=== PATIENT | male | born 1970 | race Caucasian/White ===

== ENCOUNTER 2018-10-15 15:15 | Inpatient (IN) ==
[2018-10-15] MEDS ORDERED: ONDANSETRON 4 MG/2 ML VIAL IV STA (16:12)
[2018-10-15] MEDS ORDERED: SODIUM CHLORIDE 0.9% 500 ML IV STA (16:12)
[2018-10-15] MEDS ORDERED: PANTOPRAZOLE 40 MG VIAL IV STA (16:12)
[2018-10-15] MEDS ORDERED: HYDROmorphone 2 MG/1 ML VIAL IV STA ×2 (16:12→21:47)
[2018-10-15 18:09] LABS: Basophils % 0.1 % (0.0-0.8); Hematocrit 36.5 VOL% (42.0-52.0); Hemoglobin 12.1 GM/DL (14.0-18.0); Immature Granulocytes % 0.7 %; Lymphocytes # 0.2 10*3/uL (1.4-4.0); Lymphocytes % 1.2 % (21.2-54.2); Mean Corpuscular HGB Conc 33.2 GM/DL (32-36); Mean Corpuscular Hemoglobin 35 PG (27-34); Mean Corpuscular Volume 105.5 FL (87-102); Mean Platelet Volume 11.7 FL (9.6-12.0); Monocytes # 1.5 10*3/uL (0.11-0.8); Monocytes % 10.1 % (1.7-12.7); Neutrophils % 87.9 % (38.7-73.9); Platelet Count 77 T/CUMM (130-400); Red Blood Count 3.46 MC/CUMM (3.8-5.5); Red Cell Distribution Width 12.5 % (9.3-17.3); White Blood Count 14.8 T/CUMM (4-12)
[2018-10-15 18:27] LABS: Alanine Aminotransferase 23 U/L (16-61); Albumin 2.5 G/DL (3.4-5.0); Alkaline Phosphatase 231 U/L (45-117); Amylase 5 U/L (25-115); Aspartate Amino Transferase 45 U/L (0-37); Blood Urea Nitrogen 9 MG/DL (7-18); Glucose 138 MG/DL (74-106); Osmolality,Calculated 279.4 MOS/KG (273-304); Potassium 3.7 MMOL/L (3.5-5.1); Sodium 140 MMOL/L (136-145); Total Protein 5.5 G/DL (6.4-8.3)
[2018-10-15] MEDS ORDERED: MAGNESIUM SULF RIDER 2 GM in PREMIX 1 EACH IV STA (19:07)
[2018-10-15] MEDS ORDERED: SODIUM CHLORIDE 0.9% 1,950 ML IV ONE (19:10)
[2018-10-15] MEDS ORDERED: SODIUM CHLORIDE 0.9% 1,000 ML IV SCH (19:30)
[2018-10-15] MEDS ORDERED: PIPERACILLIN/TAZOBACTAM 3,375 MG in SODIUM CHLORIDE 0.9% 100 ML IV SCH (19:30)
[2018-10-15] MEDS ORDERED: ALBUTEROL 2.5 MG/3 ML NEB RESP TX PRN (19:45)
[2018-10-15] MEDS ORDERED: ALBUTEROL/IPRATROPIUM 3 ML NEB RESP TX PRN (19:45)
[2018-10-15 19:51] LABS: Apearance,Urine Slightly Hazy (Clear); Bilirubin,Urine Negative (Negative); Blood, Urine Negative (Negative); Glucose,Urine (UA) Negative (Negative); Ketones,Urine 5 mg/dL (Negative); Nitrite,Urine Negative (Negative); Protein,Urine 30 MG/DL; Urine Color Amber (Yellow); Urine Specific Gravity 1.041 (1.001-1.035)
[2018-10-15] MEDS ORDERED: DEXTROSE 50% 25 GM/50 ML SYRINGE IV PRN (19:53)
[2018-10-15] MEDS ORDERED: GLUCAGON 1 MG VIAL IM PRN (19:53)
[2018-10-15 19:54] LABS: RBC,Urine Rare /HPF (0-4); WBC,Urine 3 /HPF (0-6)
[2018-10-15 19:55] LABS: Hyaline Casts,Urine Few /LPF (0-3); Squamous Epithelial Cell,Urine Few /HPF (0-10)
[2018-10-15 20:04] LABS: INR 1.5; PT Patient Result 16.4 SECS; Partial Thromboplastin Time 29.9 SECS (0-40)
[2018-10-15 20:17] LABS: % Iron Saturation 91.5 % (18-50); Ferritin 1497.4 ng/ml (26-388)
[2018-10-15 20:23] LABS: Folate 4.9 NG/ML (5.4-24.0); Vitamin B12 > 2000 PG/ML (211-911)
[2018-10-15] MEDS ORDERED: PIPERACILLIN/TAZOBACTAM 3,375 MG VIAL IV ONE (20:48)
[2018-10-15 21:04] LABS: Anisocytosis Slight; Macrocytosis Slight; Segmented Neutrophils 97 % (50-85); Total Cells Counted 100
[2018-10-15 21:05] LABS: Hypochromasia Slight
[2018-10-15 21:06] LABS: Platelet Estimate Decreased
[2018-10-15] MEDS ORDERED: MEROPENEM 1,000 MG VIAL IV ONE (21:11)
[2018-10-15] MEDS: MEROPENEM 1,000 MG in SODIUM CHLORIDE 0.9% 100 ML IV SCH (22:05)
[2018-10-16] MEDS: PANTOPRAZOLE 40 MG VIAL IV SCH ×2 (00:15→20:09)
[2018-10-16] MEDS: ENOXAPARIN 40 MG/0.4 ML SYRINGE SUBCUT SCH ×2 (00:24→21:31)
[2018-10-16] MEDS: LEVOFLOXACIN INJ 750 MG in PREMIX 1 EACH IV SCH ×2 (00:24→21:31)
[2018-10-16] MEDS: LACTATED RINGERS 1,000 ML IV SCH ×6 (00:24→21:30)
[2018-10-16 02:46] LABS: Basophils % 0.1 % (0.0-0.8); Eosinophils % 0.1 % (0.00-10.9); Hematocrit 31.5 VOL% (42.0-52.0); Hemoglobin 10.3 GM/DL (14.0-18.0); Immature Granulocytes % 0.8 %; Immature Granulocytes Absolute 0.13 #; Lymphocytes # 0.4 10*3/uL (1.4-4.0); Lymphocytes % 2.5 % (21.2-54.2); Mean Corpuscular HGB Conc 32.7 GM/DL (32-36); Mean Corpuscular Hemoglobin 35 PG (27-34); Mean Corpuscular Volume 107.5 FL (87-102); Mean Platelet Volume 11.8 FL (9.6-12.0); Monocytes # 1.7 10*3/uL (0.11-0.8); Monocytes % 10.5 % (1.7-12.7); Neutrophils # 14.3 10*3/uL (1.4-7.4); Red Blood Count 2.93 MC/CUMM (3.8-5.5); Red Cell Distribution Width 12.7 % (9.3-17.3); White Blood Count 16.6 T/CUMM (4-12)
[2018-10-16 02:49] LABS: Platelet Count 64 T/CUMM (130-400)
[2018-10-16 03:07] LABS: Bilirubin,Total 1.2 MG/DL (0.2-1.0); Calcium 6.9 MG/DL (8.5-10.1); Osmolality,Calculated 273.7 MOS/KG (273-304); Risk Ratio 6.68; Total Protein 4.8 G/DL (6.4-8.3); VLDL CHOLESTEROL 12.4 MG/DL
[2018-10-16 03:44] LABS: Hypochromasia Slight; Lymphocytes 7 % (20-55); Metamyelocytes 1 %; Platelet Estimate Decreased; Segmented Neutrophils 92 % (50-85); Total Cells Counted 100
[2018-10-16] MEDS: INSULIN LISPRO 100 UNIT/ML SUBCUT SCH ×3 (07:07→17:41)
[2018-10-16] MEDS: MEROPENEM 1,000 MG in SODIUM CHLORIDE 0.9% 100 ML IV SCH ×3 (07:08→21:30)
[2018-10-16] MEDS: FOLIC ACID 1 MG TABLET PO SCH (09:33)
[2018-10-16] MEDS: HYDROmorphone 2 MG/1 ML VIAL IV PRN ×3 (10:59→23:04)
[2018-10-16] MEDS: HYDROcod/ACETAMIN 7.5-325 MG/15 ML UDCUP PO PRN ×2 (13:46→20:16)
[2018-10-17] MEDS: INSULIN LISPRO 100 UNIT/ML SUBCUT SCH ×4 (00:04→18:27)
[2018-10-17] MEDS: PROMETHAZINE 25 MG/1 ML VIAL IM PRN (00:12)
[2018-10-17] MEDS: HYDROcod/ACETAMIN 7.5-325 MG/15 ML UDCUP PO PRN ×3 (03:58→15:59)
[2018-10-17] MEDS: MEROPENEM 1,000 MG in SODIUM CHLORIDE 0.9% 100 ML IV SCH (04:57)
[2018-10-17 05:17] LABS: Basophils % 0.1 % (0.0-0.8); Eosinophils # 0.1 10*3/uL (0.0-0.87); Hematocrit 30.7 VOL% (42.0-52.0); Hemoglobin 9.8 GM/DL (14.0-18.0); Immature Granulocytes % 0.4 %; Immature Granulocytes Absolute 0.03 #; Lymphocytes # 0.2 10*3/uL (1.4-4.0); Lymphocytes % 2.9 % (21.2-54.2); Mean Corpuscular HGB Conc 31.9 GM/DL (32-36); Mean Corpuscular Hemoglobin 35 PG (27-34); Mean Corpuscular Volume 108.1 FL (87-102); Mean Platelet Volume 11.9 FL (9.6-12.0); Monocytes # 0.7 10*3/uL (0.11-0.8); Monocytes % 9.7 % (1.7-12.7); Neutrophils % 84.9 % (38.7-73.9); Red Blood Count 2.84 MC/CUMM (3.8-5.5); Red Cell Distribution Width 12.4 % (9.3-17.3)
[2018-10-17 05:19] LABS: Platelet Count 38 T/CUMM (130-400)
[2018-10-17 05:39] LABS: Albumin 1.8 G/DL (3.4-5.0); Bilirubin,Total 1.2 MG/DL (0.2-1.0); Calcium 7.4 MG/DL (8.5-10.1); Osmolality,Calculated 267.1 MOS/KG (273-304); Potassium 3.4 MMOL/L (3.5-5.1); Total Protein 4.3 G/DL (6.4-8.3)
[2018-10-17 05:45] LABS: Band Neutrophils 2 % (0-10); Eosinophils 2 % (0-10); Hypochromasia 1+; Lymphocytes 2 % (20-55); Platelet Estimate Decreased; Segmented Neutrophils 87 % (50-85); Total Cells Counted 100
[2018-10-17] MEDS ORDERED: SODIUM CHLORIDE 0.9% 1,000 ML IV PRN (05:51)
[2018-10-17] MEDS: FOLIC ACID 1 MG TABLET PO SCH (08:21)
[2018-10-17] MEDS: LACTATED RINGERS 1,000 ML IV SCH (09:04)
[2018-10-17] MEDS: THIAMINE 100 MG TABLET PO SCH (09:15)
[2018-10-17] MEDS: LEVOFLOXACIN 750 MG TABLET PO SCH (09:15)
[2018-10-17] MEDS: PANTOPRAZOLE 40 MG TABLET PO SCH (09:15)
[2018-10-17] MEDS: POTASSIUM CHLORIDE 20 MEQ TABLET PO SCH ×3 (09:47→18:27)
[2018-10-17] MEDS: FLUoxetine 20 MG CAPSULE PO SCH (10:57)
[2018-10-17] MEDS: LEVOTHYROXINE 200 MCG TABLET PO SCH (10:57)
[2018-10-17] MEDS: ONDANSETRON 4 MG/2 ML VIAL IV PRN (20:38)
[2018-10-17] MEDS: HYDROmorphone 2 MG/1 ML VIAL IV PRN (22:18)
[2018-10-18] MEDS: INSULIN LISPRO 100 UNIT/ML SUBCUT SCH ×2 (01:22→06:19)
[2018-10-18] MEDS: HYDROmorphone 2 MG/1 ML VIAL IV PRN ×3 (01:31→23:24)
[2018-10-18] MEDS: THIAMINE 100 MG TABLET PO SCH (10:02)
[2018-10-18] MEDS: LEVOTHYROXINE 200 MCG TABLET PO SCH (10:02)
[2018-10-18] MEDS: FOLIC ACID 1 MG TABLET PO SCH (10:03)
[2018-10-18] MEDS: LEVOFLOXACIN 750 MG TABLET PO SCH (10:03)
[2018-10-18] MEDS: PANTOPRAZOLE 40 MG TABLET PO SCH (10:03)
[2018-10-18] MEDS: FLUoxetine 20 MG CAPSULE PO SCH (10:03)
[2018-10-18] MEDS: PROMETHAZINE 25 MG/1 ML VIAL IM PRN (10:10)
[2018-10-18] MEDS ORDERED: MAGNESIUM SULF RIDER 4 GM in PREMIX 1 EACH IV PRN (10:30)
[2018-10-18 11:03] LABS: Osmolality,Calculated 267.1 MOS/KG (273-304); Potassium 4.3 MMOL/L (3.5-5.1)
[2018-10-18] MEDS: LACTULOSE 20 GM/30 ML UDCUP PO SCH ×2 (13:03→21:09)
[2018-10-18] MEDS: RIFAXIMIN 550 MG TABLET PO SCH ×2 (13:03→21:09)
[2018-10-18] MEDS: MAGNESIUM SULF RIDER 2 GM in PREMIX 1 EACH IV PRN (17:44)
[2018-10-18] MEDS: TAMSULOSIN 0.4 MG CAPSULE PO SCH (21:10)
[2018-10-19] MEDS: PROMETHAZINE 25 MG/1 ML VIAL IM PRN (01:41)
[2018-10-19 04:56] LABS: Calcium 8.3 MG/DL (8.5-10.1); Potassium 4.8 MMOL/L (3.5-5.1)
[2018-10-19 09:13] LABS: Basophils % 0.2 % (0.0-0.8); Eosinophils # 0.1 10*3/uL (0.0-0.87); Eosinophils % 0.4 % (0.00-10.9); Hematocrit 39.5 VOL% (42.0-52.0); Immature Granulocytes % 0.7 %; Immature Granulocytes Absolute 0.13 #; Lymphocytes # 0.3 10*3/uL (1.4-4.0); Lymphocytes % 1.4 % (21.2-54.2); Mean Corpuscular HGB Conc 32.9 GM/DL (32-36); Mean Corpuscular Hemoglobin 36 PG (27-34); Mean Corpuscular Volume 108.5 FL (87-102); Mean Platelet Volume 11.6 FL (9.6-12.0); Monocytes # 1.4 10*3/uL (0.11-0.8); Neutrophils % 89.3 % (38.7-73.9); Red Blood Count 3.64 MC/CUMM (3.8-5.5); Red Cell Distribution Width 12.5 % (9.3-17.3); White Blood Count 17.9 T/CUMM (4-12)
[2018-10-19 09:14] LABS: Platelet Count 74 T/CUMM (130-400)
[2018-10-19 09:43] LABS: Anisocytosis Slight; Band Neutrophils 15 % (0-10); Eosinophils 1 % (0-10); Lymphocytes 2 % (20-55); Platelet Estimate Decreased; Segmented Neutrophils 82 % (50-85); Total Cells Counted 100
[2018-10-19 09:44] LABS: Macrocytosis 1+
[2018-10-19 10:04] LABS: INR 1.6; PT Patient Result 16.9 SECS
[2018-10-19] MEDS: ONDANSETRON 4 MG/2 ML VIAL IV PRN (12:52)
[2018-10-19] MEDS: LEVOFLOXACIN 750 MG TABLET PO SCH (12:54)
[2018-10-19] MEDS: PANTOPRAZOLE 40 MG TABLET PO SCH (12:54)
[2018-10-19] MEDS: FLUoxetine 20 MG CAPSULE PO SCH (12:54)
[2018-10-19] MEDS: FOLIC ACID 1 MG TABLET PO SCH (12:54)
[2018-10-19] MEDS: HYDROcod/ACETAMIN 7.5-325 MG/15 ML UDCUP PO PRN (12:54)
[2018-10-19] MEDS: THIAMINE 100 MG TABLET PO SCH (13:02)
[2018-10-19] MEDS: LEVOTHYROXINE 200 MCG TABLET PO SCH (13:03)
[2018-10-19 20:03] LABS: RBC,Pleural Fluid 649 T/CUMM
[2018-10-19 20:08] LABS: Lymphocytes,Pleural Fluid 7 %; Monocytes,Pleural Fluid 16 %; Neutrophils,Pleural Fluid 77 %
[2018-10-19] MEDS: TAMSULOSIN 0.4 MG CAPSULE PO SCH (20:58)
[2018-10-20] MEDS: HYDROcod/ACETAMIN 7.5-325 MG/15 ML UDCUP PO PRN (11:31)
[2018-10-20] MEDS: FOLIC ACID 1 MG TABLET PO SCH (11:31)
[2018-10-20] MEDS: LEVOFLOXACIN 750 MG TABLET PO SCH (11:31)
[2018-10-20] MEDS: LEVOTHYROXINE 200 MCG TABLET PO SCH (11:31)
[2018-10-20] MEDS: PANTOPRAZOLE 40 MG TABLET PO SCH (11:31)
[2018-10-20] MEDS: FLUoxetine 20 MG CAPSULE PO SCH (11:32)
[2018-10-20] MEDS: THIAMINE 100 MG TABLET PO SCH (11:32)
[2018-10-20] MEDS: ALBUTEROL 2.5 MG/3 ML NEB RESP TX SCH ×2 (14:00→19:41)
[2018-10-20] MEDS: PIPERACILLIN/TAZOBACTAM 3,375 MG in SODIUM CHLORIDE 0.9% 100 ML IV SCH ×3 (15:01→22:04)
[2018-10-20] MEDS: TAMSULOSIN 0.4 MG CAPSULE PO SCH (20:16)
[2018-10-21] MEDS: ALBUTEROL 2.5 MG/3 ML NEB RESP TX SCH ×4 (01:54→19:58)
[2018-10-21] MEDS: PIPERACILLIN/TAZOBACTAM 3,375 MG in SODIUM CHLORIDE 0.9% 100 ML IV SCH ×3 (05:56→21:58)
[2018-10-21] MEDS: PANTOPRAZOLE 40 MG TABLET PO SCH (09:03)
[2018-10-21] MEDS: THIAMINE 100 MG TABLET PO SCH (09:03)
[2018-10-21] MEDS: HYDROcod/ACETAMIN 7.5-325 MG/15 ML UDCUP PO PRN ×3 (09:03→22:54)
[2018-10-21] MEDS: FLUoxetine 20 MG CAPSULE PO SCH (09:03)
[2018-10-21] MEDS: LEVOFLOXACIN 750 MG TABLET PO SCH (09:03)
[2018-10-21] MEDS: LEVOTHYROXINE 200 MCG TABLET PO SCH (09:03)
[2018-10-21] MEDS: FOLIC ACID 1 MG TABLET PO SCH (09:03)
[2018-10-21] MEDS: ONDANSETRON 4 MG/2 ML VIAL IV PRN (09:04)
[2018-10-21] MEDS ORDERED: SPIRONOLACTONE 25 MG TABLET PO SCH (13:00)
[2018-10-21] MEDS: SPIRONOLACTONE 25 MG TABLET PO SCH (15:52)
[2018-10-22] MEDS: ALBUTEROL 2.5 MG/3 ML NEB RESP TX SCH ×4 (00:09→19:49)
[2018-10-22] MEDS: TAMSULOSIN 0.4 MG CAPSULE PO SCH ×2 (05:01→20:57)
[2018-10-22] MEDS: HYDROcod/ACETAMIN 7.5-325 MG/15 ML UDCUP PO PRN ×3 (05:02→16:16)
[2018-10-22] MEDS: PIPERACILLIN/TAZOBACTAM 3,375 MG in SODIUM CHLORIDE 0.9% 100 ML IV SCH ×3 (05:59→21:46)
[2018-10-22] MEDS: FOLIC ACID 1 MG TABLET PO SCH (08:07)
[2018-10-22] MEDS: FLUoxetine 20 MG CAPSULE PO SCH (08:07)
[2018-10-22] MEDS: LEVOFLOXACIN 750 MG TABLET PO SCH (08:07)
[2018-10-22] MEDS: SPIRONOLACTONE 25 MG TABLET PO SCH (08:07)
[2018-10-22] MEDS: PANTOPRAZOLE 40 MG TABLET PO SCH (08:07)
[2018-10-22] MEDS: LEVOTHYROXINE 200 MCG TABLET PO SCH (08:08)
[2018-10-22] MEDS: THIAMINE 100 MG TABLET PO SCH (08:08)
[2018-10-22 09:47] LABS: Basophils # 0.1 10*3/uL (0.0-0.2); Basophils % 0.4 % (0.0-0.8); Eosinophils # 0.6 10*3/uL (0.0-0.87); Eosinophils % 4.3 % (0.00-10.9); Hematocrit 34.5 VOL% (42.0-52.0); Hemoglobin 11.5 GM/DL (14.0-18.0); Immature Granulocytes % 0.6 %; Immature Granulocytes Absolute 0.08 #; Lymphocytes # 0.4 10*3/uL (1.4-4.0); Lymphocytes % 2.8 % (21.2-54.2); Mean Corpuscular HGB Conc 33.3 GM/DL (32-36); Mean Corpuscular Hemoglobin 35 PG (27-34); Mean Corpuscular Volume 105.2 FL (87-102); Mean Platelet Volume 11.8 FL (9.6-12.0); Monocytes # 1.3 10*3/uL (0.11-0.8); Monocytes % 10.3 % (1.7-12.7); Neutrophils # 10.4 10*3/uL (1.4-7.4); Neutrophils % 81.6 % (38.7-73.9); Platelet Count 42 T/CUMM (130-400); Red Blood Count 3.28 MC/CUMM (3.8-5.5); Red Cell Distribution Width 13.1 % (9.3-17.3); White Blood Count 12.7 T/CUMM (4-12)
[2018-10-22 10:04] LABS: Calcium 7.7 MG/DL (8.5-10.1); Osmolality,Calculated 262.5 MOS/KG (273-304); Potassium 2.9 MMOL/L (3.5-5.1)
[2018-10-22 10:11] LABS: Band Neutrophils 3 % (0-10); Eosinophils 5 % (0-10); Hypochromasia Slight; Lymphocytes 1 % (20-55); Platelet Estimate Decreased; Segmented Neutrophils 86 % (50-85); Total Cells Counted 100
[2018-10-22 10:12] LABS: Macrocytosis Slight
[2018-10-22] MEDS ORDERED: POTASSIUM CHLORIDE RIDER 10 MEQ in PREMIX 1 EACH IV PRN (12:18)
[2018-10-22] MEDS ORDERED: POTASSIUM CHLORIDE RIDER 20 MEQ in PREMIX 1 EACH IV PRN (12:18)
[2018-10-22] MEDS ORDERED: POTASSIUM CHLORIDE 20 MEQ TABLET PO PRN (12:18)
[2018-10-22] MEDS: MAGNESIUM SULF RIDER 2 GM in PREMIX 1 EACH IV PRN (12:37)
[2018-10-22] MEDS: POTASSIUM CHLORIDE RIDER 20 MEQ in PREMIX 1 EACH IV PRN (14:34)
[2018-10-22] MEDS: POTASSIUM CHLORIDE RIDER 10 MEQ in PREMIX 1 EACH IV PRN (16:33)
[2018-10-22] MEDS: HYDROmorphone 2 MG/1 ML VIAL IV PRN (20:54)
[2018-10-22] MEDS: CLOTRIMAZOLE/BETAMETHASONE CREAM 15 GM TUBE TOP SCH (20:57)
[2018-10-22] MEDS: TEMAZEPAM 7.5 MG CAPSULE PO PRN (23:05)
[2018-10-23] MEDS: ALBUTEROL 2.5 MG/3 ML NEB RESP TX SCH ×4 (00:48→18:28)
[2018-10-23] MEDS: HYDROcod/ACETAMIN 7.5-325 MG/15 ML UDCUP PO PRN ×4 (02:33→22:05)
[2018-10-23] MEDS: PIPERACILLIN/TAZOBACTAM 3,375 MG in SODIUM CHLORIDE 0.9% 100 ML IV SCH ×3 (06:01→21:56)
[2018-10-23] MEDS ORDERED: SODIUM CHLORIDE 0.9% 500 ML IV ONE (08:13)
[2018-10-23] MEDS ORDERED: SODIUM CHLORIDE 0.9% 1,000 ML IV PRN (08:29)
[2018-10-23] MEDS ORDERED: PROPOFOL 200 MG/20 ML VIAL IV ONE (09:00)
[2018-10-23] MEDS ORDERED: ETOMIDATE 20 MG/10 ML VIAL IV ONE (09:00)
[2018-10-23] MEDS ORDERED: PHENYLEPHRINE 1 MG/10 ML SYRINGE IV ONE (09:00)
[2018-10-23] MEDS ORDERED: LIDOCAINE 2% 5 ML VIAL ONE (09:00)
[2018-10-23] MEDS: SODIUM CHLORIDE 0.9% 1,000 ML IV SCH ×2 (09:06→21:55)
[2018-10-23] MEDS ORDERED: ALBUMIN 25% 25 GM in PREMIX 1 EACH IV ONE (09:15)
[2018-10-23 09:25] LABS: Basophils % 0.3 % (0.0-0.8); Eosinophils # 0.2 10*3/uL (0.0-0.87); Eosinophils % 2.3 % (0.00-10.9); Hematocrit 31.2 VOL% (42.0-52.0); Hemoglobin 10.5 GM/DL (14.0-18.0); Immature Granulocytes % 0.5 %; Immature Granulocytes Absolute 0.05 #; Lymphocytes # 0.2 10*3/uL (1.4-4.0); Lymphocytes % 1.8 % (21.2-54.2); Mean Corpuscular HGB Conc 33.7 GM/DL (32-36); Mean Corpuscular Hemoglobin 35 PG (27-34); Mean Corpuscular Volume 104.3 FL (87-102); Mean Platelet Volume 11.7 FL (9.6-12.0); Monocytes # 1.1 10*3/uL (0.11-0.8); Monocytes % 10.7 % (1.7-12.7); Neutrophils # 8.9 10*3/uL (1.4-7.4); Neutrophils % 84.4 % (38.7-73.9); Red Blood Count 2.99 MC/CUMM (3.8-5.5); Red Cell Distribution Width 12.8 % (9.3-17.3); White Blood Count 10.5 T/CUMM (4-12)
[2018-10-23] MEDS: SPIRONOLACTONE 25 MG TABLET PO SCH (09:25)
[2018-10-23] MEDS: FOLIC ACID 1 MG TABLET PO SCH (09:25)
[2018-10-23] MEDS: LEVOFLOXACIN 750 MG TABLET PO SCH (09:25)
[2018-10-23] MEDS: FLUoxetine 20 MG CAPSULE PO SCH (09:26)
[2018-10-23] MEDS: THIAMINE 100 MG TABLET PO SCH (09:26)
[2018-10-23] MEDS: LEVOTHYROXINE 200 MCG TABLET PO SCH (09:26)
[2018-10-23 09:29] LABS: Platelet Count 26 T/CUMM (130-400)
[2018-10-23 09:53] LABS: Albumin 1.7 G/DL (3.4-5.0); Bilirubin,Total 1.3 MG/DL (0.2-1.0); Calcium 7.6 MG/DL (8.5-10.1); Osmolality,Calculated 269.1 MOS/KG (273-304); Potassium 3.3 MMOL/L (3.5-5.1); Total Protein 4.3 G/DL (6.4-8.3)
[2018-10-23 10:01] LABS: Hypochromasia 1+; Platelet Estimate Decreased
[2018-10-23 10:02] LABS: Macrocytosis Slight
[2018-10-23] MEDS: CYANOCOBALAMIN 1000 MCG/1 ML VIAL IM SCH (10:36)
[2018-10-23] MEDS: CLOTRIMAZOLE/BETAMETHASONE CREAM 15 GM TUBE TOP SCH ×2 (10:37→21:04)
[2018-10-23] MEDS: POTASSIUM CHLORIDE RIDER 20 MEQ in PREMIX 1 EACH IV PRN ×2 (15:26→17:39)
[2018-10-23] MEDS ORDERED: MORPHINE 4 MG/1 ML VIAL IV PRN (17:54)
[2018-10-23] MEDS: TAMSULOSIN 0.4 MG CAPSULE PO SCH (21:02)
[2018-10-23] MEDS: TEMAZEPAM 7.5 MG CAPSULE PO PRN (23:59)
[2018-10-24] MEDS: POTASSIUM CHLORIDE RIDER 20 MEQ in PREMIX 1 EACH IV PRN (00:01)
[2018-10-24] MEDS: ALBUTEROL 2.5 MG/3 ML NEB RESP TX SCH ×3 (01:15→13:20)
[2018-10-24] MEDS: POTASSIUM CHLORIDE RIDER 10 MEQ in PREMIX 1 EACH IV PRN (02:17)
[2018-10-24] MEDS: HYDROcod/ACETAMIN 7.5-325 MG/15 ML UDCUP PO PRN ×3 (02:24→13:27)
[2018-10-24 04:32] LABS: Basophils % 0.3 % (0.0-0.8); Eosinophils # 0.1 10*3/uL (0.0-0.87); Eosinophils % 0.8 % (0.00-10.9); Hematocrit 26.8 VOL% (42.0-52.0); Immature Granulocytes % 0.5 %; Immature Granulocytes Absolute 0.04 #; Lymphocytes # 0.2 10*3/uL (1.4-4.0); Lymphocytes % 1.9 % (21.2-54.2); Mean Corpuscular HGB Conc 33.6 GM/DL (32-36); Mean Corpuscular Hemoglobin 36 PG (27-34); Mean Corpuscular Volume 106.3 FL (87-102); Mean Platelet Volume 11.4 FL (9.6-12.0); Monocytes # 0.6 10*3/uL (0.11-0.8); Monocytes % 7.2 % (1.7-12.7); Neutrophils # 6.9 10*3/uL (1.4-7.4); Neutrophils % 89.3 % (38.7-73.9); Red Blood Count 2.52 MC/CUMM (3.8-5.5); Red Cell Distribution Width 12.9 % (9.3-17.3); White Blood Count 7.8 T/CUMM (4-12)
[2018-10-24 04:34] LABS: Platelet Count 43 T/CUMM (130-400)
[2018-10-24 04:52] LABS: Band Neutrophils 1 % (0-10); Eosinophils 1 % (0-10); Hypochromasia 1+; Lymphocytes 5 % (20-55); Platelet Estimate Decreased; Segmented Neutrophils 87 % (50-85); Total Cells Counted 100
[2018-10-24 04:53] LABS: Macrocytosis Slight; Ovalocytes Slight
[2018-10-24 05:21] LABS: Albumin 1.9 G/DL (3.4-5.0); Bilirubin,Total 0.9 MG/DL (0.2-1.0); Calcium 7.3 MG/DL (8.5-10.1); Osmolality,Calculated 270.8 MOS/KG (273-304); Potassium 3.8 MMOL/L (3.5-5.1); Total Protein 3.8 G/DL (6.4-8.3)
[2018-10-24] MEDS: PIPERACILLIN/TAZOBACTAM 3,375 MG in SODIUM CHLORIDE 0.9% 100 ML IV SCH (05:54)
[2018-10-24] MEDS: SODIUM CHLORIDE 0.9% 1,000 ML IV SCH (05:54)
[2018-10-24] MEDS: THIAMINE 100 MG TABLET PO SCH (09:20)
[2018-10-24] MEDS: LEVOFLOXACIN 750 MG TABLET PO SCH (09:20)
[2018-10-24] MEDS: FOLIC ACID 1 MG TABLET PO SCH (09:20)
[2018-10-24] MEDS: FLUoxetine 20 MG CAPSULE PO SCH (09:20)
[2018-10-24] MEDS: SPIRONOLACTONE 25 MG TABLET PO SCH (09:20)
[2018-10-24] MEDS: LEVOTHYROXINE 200 MCG TABLET PO SCH (09:20)
[2018-10-24] MEDS: CLOTRIMAZOLE/BETAMETHASONE CREAM 15 GM TUBE TOP SCH (09:22)
[2018-10-24] MEDS: MAGNESIUM SULF RIDER 2 GM in PREMIX 1 EACH IV PRN (09:28)
[2018-10-24] MEDS: CYANOCOBALAMIN 1000 MCG/1 ML VIAL IM SCH (10:31)
[2018-10-24 10:59] VITALS: BP 87/55
[2018-10-24] MEDS ORDERED: HEPARIN LOCK FLUSH 500 UNIT/5 ML SYRINGE IV ONE (14:15)
[2018-10-29] MEDS ORDERED: CYANOCOBALAMIN 1000 MCG/1 ML VIAL IM SCH (09:00)
== END 2018-10-24 15:01 | disposition home health service (06) | DRG 871 ==
LOC: EDUNIT# → EDBD → N.ED 15:15 → SUATTDRO 19:45 → N.EDINP 19:45 → N.ICU 21:04 → N.4E 10-17 10:21
PROVIDERS: ADMIT Internal Medicine; ATTEND Hospitalist

== ENCOUNTER 2018-11-01 22:42 | Inpatient (IN) ==
[2018-11-01] MEDS ORDERED: ONDANSETRON 4 MG/2 ML VIAL IV STA (23:26)
[2018-11-01] MEDS ORDERED: fentaNYL 100 MCG/2 ML VIAL IV STA (23:26)
[2018-11-01 23:48] LABS: Basophils # 0.1 10*3/uL (0.0-0.2); Basophils % 0.7 % (0.0-0.8); Eosinophils # 0.2 10*3/uL (0.0-0.87); Eosinophils % 2.3 % (0.00-10.9); Hematocrit 31.5 VOL% (42.0-52.0); Hemoglobin 10.6 GM/DL (14.0-18.0); Immature Granulocytes % 0.6 %; Immature Granulocytes Absolute 0.05 #; Lymphocytes # 0.3 10*3/uL (1.4-4.0); Lymphocytes % 3.3 % (21.2-54.2); Mean Corpuscular HGB Conc 33.7 GM/DL (32-36); Mean Corpuscular Hemoglobin 35 PG (27-34); Mean Corpuscular Volume 103.6 FL (87-102); Mean Platelet Volume 11.7 FL (9.6-12.0); Monocytes # 0.9 10*3/uL (0.11-0.8); Monocytes % 10.8 % (1.7-12.7); Neutrophils # 6.7 10*3/uL (1.4-7.4); Neutrophils % 82.3 % (38.7-73.9); Red Blood Count 3.04 MC/CUMM (3.8-5.5); Red Cell Distribution Width 13.7 % (9.3-17.3); White Blood Count 8.2 T/CUMM (4-12)
[2018-11-01 23:54] LABS: Platelet Count 32 T/CUMM (130-400)
[2018-11-01 23:59] LABS: INR 1.5; PT Patient Result 16.6 SECS
[2018-11-02 00:08] LABS: Apearance,Urine CLEAR (Clear); Bilirubin,Urine Negative (Negative); Blood, Urine Large mg/dL (Negative); Glucose,Urine (UA) Negative (Negative); Hyaline Casts,Urine 47 /LPF (0-3); Ketones,Urine 5 mg/dL (Negative); Mucus,Urine Many /LPF (Occasional); Nitrite,Urine Negative (Negative); Protein,Urine 30 MG/DL; RBC,Urine 117 /HPF (0-4); Urine Color Amber (Yellow); Urine Specific Gravity 1.024 (1.001-1.035); WBC,Urine 1 /HPF (0-6)
[2018-11-02 00:13] LABS: Alanine Aminotransferase 13 U/L (16-61); Albumin 2.1 G/DL (3.4-5.0); Alkaline Phosphatase 116 U/L (45-117); Amylase 16 U/L (25-115); Aspartate Amino Transferase 28 U/L (0-37); Blood Urea Nitrogen 10 MG/DL (7-18); Calcium 7.7 MG/DL (8.5-10.1); Glucose 88 MG/DL (74-106); Osmolality,Calculated 272.7 MOS/KG (273-304); Potassium 3.6 MMOL/L (3.5-5.1); Sodium 138 MMOL/L (136-145); Total Protein 4.8 G/DL (6.4-8.3); Troponin I < 0.015 NG/ML (0.00-0.045)
[2018-11-02 00:32] LABS: Eosinophils 2 % (0-10); Lymphocytes 4 % (20-55); Segmented Neutrophils 85 % (50-85)
[2018-11-02 00:33] LABS: Burr Cells 1+; Hypochromasia Slight; Platelet Estimate Decreased; Target Cells Few
[2018-11-02 00:34] LABS: Total Cells Counted 100
[2018-11-02] MEDS ORDERED: LEVOFLOXACIN INJ 750 MG in PREMIX 1 EACH IV STA (01:37)
[2018-11-02] MEDS ORDERED: PHENAZOPYRIDINE 95 MG TABLET PO STA (01:37)
[2018-11-02] MEDS ORDERED: SODIUM CHLORIDE 0.9% 1,000 ML IV STA (02:38)
[2018-11-02] MEDS ORDERED: KETOROLAC 30 MG/1 ML VIAL ONE (03:04)
[2018-11-02] MEDS ORDERED: ACETAMINOPHEN 325 MG TABLET PO PRN (03:11)
[2018-11-02] MEDS ORDERED: NICOTINE 21 MG/24 HR PATCH TRANSDERM PRN (03:11)
[2018-11-02] MEDS ORDERED: diphenhydrAMINE CAP 25 MG CAPSULE PO PRN (03:11)
[2018-11-02] MEDS ORDERED: SODIUM CHLORIDE 0.9% 1,000 ML IV SCH (03:30)
[2018-11-02] MEDS: CEFEPIME 1,000 MG in SYRINGE 1 EACH IV SCH ×2 (04:40→16:59)
[2018-11-02] MEDS: metroNIDAZOLE INJ 500 MG in PREMIX 1 EACH IV SCH ×2 (04:43→16:59)
[2018-11-02] MEDS ORDERED: SODIUM CHLORIDE 0.9% 1,000 ML IV PRN (08:46)
[2018-11-02] MEDS ORDERED: PANTOPRAZOLE 40 MG TABLET PO SCH (09:00)
[2018-11-02] MEDS ORDERED: TISSUE ADHESIVE 1 EACH APPLICATOR TOP ONE (09:56)
[2018-11-02 10:09] LABS: Neutrophils,Peritoneal Fluid 34 %
[2018-11-02 10:10] LABS: RBC,Peritoneal Fluid 66 T/CUMM
[2018-11-02] MEDS ORDERED: SODIUM CHLORIDE 0.9% 250 ML IV ONE (11:55)
[2018-11-02 12:04] LABS: Basophils % 0.2 % (0.0-0.8); Eosinophils # 0.1 10*3/uL (0.0-0.87); Eosinophils % 1.2 % (0.00-10.9); Hematocrit 27.6 VOL% (42.0-52.0); Immature Granulocytes % 0.4 %; Immature Granulocytes Absolute 0.02 #; Lymphocytes # 0.2 10*3/uL (1.4-4.0); Lymphocytes % 4.8 % (21.2-54.2); Mean Corpuscular HGB Conc 32.6 GM/DL (32-36); Mean Corpuscular Hemoglobin 35 PG (27-34); Mean Corpuscular Volume 106.6 FL (87-102); Mean Platelet Volume 11.6 FL (9.6-12.0); Monocytes # 0.5 10*3/uL (0.11-0.8); Neutrophils # 4.2 10*3/uL (1.4-7.4); Neutrophils % 83.4 % (38.7-73.9); Red Blood Count 2.59 MC/CUMM (3.8-5.5); Red Cell Distribution Width 13.7 % (9.3-17.3)
[2018-11-02 12:09] LABS: Platelet Count 24 T/CUMM (130-400)
[2018-11-02] MEDS: ALBUMIN 25% 50 GM in PREMIX 1 EACH IV SCH ×2 (13:10→19:17)
[2018-11-02 13:35] LABS: Band Neutrophils 6 % (0-10); Segmented Neutrophils 90 % (50-85); Total Cells Counted 100
[2018-11-02 13:36] LABS: Ovalocytes Slight; Platelet Estimate Decreased; Polychromasia Slight; Tear Drop Cells Slight
[2018-11-02] MEDS: NOREPINEPHRINE 8 MG in SODIUM CHLORIDE 0.9% 242 ML IV PRN (16:30)
[2018-11-03] MEDS: TAMSULOSIN 0.4 MG CAPSULE PO SCH ×2 (00:10→19:59)
[2018-11-03] MEDS: NOREPINEPHRINE 8 MG in SODIUM CHLORIDE 0.9% 242 ML IV PRN ×2 (01:11→11:17)
[2018-11-03] MEDS: CEFEPIME 1,000 MG in SYRINGE 1 EACH IV SCH ×2 (04:45→16:29)
[2018-11-03] MEDS: ALBUMIN 25% 50 GM in PREMIX 1 EACH IV SCH (04:46)
[2018-11-03 04:56] LABS: Basophils % 0.4 % (0.0-0.8); Eosinophils # 0.2 10*3/uL (0.0-0.87); Eosinophils % 2.4 % (0.00-10.9); Hematocrit 27.4 VOL% (42.0-52.0); Hemoglobin 9.1 GM/DL (14.0-18.0); Immature Granulocytes % 0.5 %; Immature Granulocytes Absolute 0.04 #; Lymphocytes # 0.4 10*3/uL (1.4-4.0); Lymphocytes % 4.6 % (21.2-54.2); Mean Corpuscular HGB Conc 33.2 GM/DL (32-36); Mean Corpuscular Hemoglobin 35 PG (27-34); Mean Platelet Volume 11.7 FL (9.6-12.0); Monocytes # 0.8 10*3/uL (0.11-0.8); Monocytes % 9.9 % (1.7-12.7); Neutrophils # 6.7 10*3/uL (1.4-7.4); Neutrophils % 82.2 % (38.7-73.9); Red Blood Count 2.61 MC/CUMM (3.8-5.5); Red Cell Distribution Width 13.7 % (9.3-17.3)
[2018-11-03 04:57] LABS: Platelet Count 44 T/CUMM (130-400); White Blood Count 8.2 T/CUMM (4-12)
[2018-11-03 05:17] LABS: Albumin 2.5 G/DL (3.4-5.0); Bilirubin,Total 2.1 MG/DL (0.2-1.0); Calcium 7.2 MG/DL (8.5-10.1); Osmolality,Calculated 281.3 MOS/KG (273-304); Potassium 3.2 MMOL/L (3.5-5.1); Total Protein 4.5 G/DL (6.4-8.3)
[2018-11-03 05:24] LABS: Band Neutrophils 1 % (0-10); Lymphocytes 4 % (20-55); Segmented Neutrophils 94 % (50-85); Total Cells Counted 100
[2018-11-03 05:25] LABS: Platelet Estimate Decreased; Polychromasia Few
[2018-11-03] MEDS: LEVOTHYROXINE 200 MCG TABLET PO SCH (05:55)
[2018-11-03] MEDS: metroNIDAZOLE INJ 500 MG in PREMIX 1 EACH IV SCH ×2 (05:55→16:34)
[2018-11-03] MEDS: POTASSIUM CHLORIDE 20 MEQ TABLET PO SCH ×3 (09:00→16:26)
[2018-11-03] MEDS: FLUoxetine 20 MG CAPSULE PO SCH (09:00)
[2018-11-03] MEDS: PANTOPRAZOLE 40 MG TABLET PO SCH ×2 (09:01→19:59)
[2018-11-03] MEDS: SPIRONOLACTONE 25 MG TABLET PO SCH (09:01)
[2018-11-04 04:37] LABS: Calcium 7.3 MG/DL (8.5-10.1); Osmolality,Calculated 283.8 MOS/KG (273-304); Potassium 4.1 MMOL/L (3.5-5.1)
[2018-11-04] MEDS: CEFEPIME 1,000 MG in SYRINGE 1 EACH IV SCH ×2 (05:38→17:09)
[2018-11-04] MEDS: LEVOTHYROXINE 200 MCG TABLET PO SCH (05:38)
[2018-11-04] MEDS: metroNIDAZOLE INJ 500 MG in PREMIX 1 EACH IV SCH ×2 (05:40→17:14)
[2018-11-04] MEDS: FLUoxetine 20 MG CAPSULE PO SCH (08:13)
[2018-11-04] MEDS: PANTOPRAZOLE 40 MG TABLET PO SCH ×2 (08:13→20:08)
[2018-11-04] MEDS: SPIRONOLACTONE 25 MG TABLET PO SCH (08:13)
[2018-11-04] MEDS: MAGNESIUM SULFATE 1 GM/2 ML VIAL IM SCH ×2 (11:00→17:14)
[2018-11-04] MEDS: FOLIC ACID 1 MG TABLET PO SCH (12:15)
[2018-11-04] MEDS: TAMSULOSIN 0.4 MG CAPSULE PO SCH (20:08)
[2018-11-05 04:29] LABS: Basophils % 0.6 % (0.0-0.8); Eosinophils # 0.1 10*3/uL (0.0-0.87); Eosinophils % 2.9 % (0.00-10.9); Hematocrit 27.5 VOL% (42.0-52.0); Hemoglobin 9.1 GM/DL (14.0-18.0); Immature Granulocytes % 0.3 %; Immature Granulocytes Absolute 0.01 #; Lymphocytes # 0.3 10*3/uL (1.4-4.0); Lymphocytes % 7.3 % (21.2-54.2); Mean Corpuscular HGB Conc 33.1 GM/DL (32-36); Mean Corpuscular Hemoglobin 35 PG (27-34); Mean Corpuscular Volume 105.4 FL (87-102); Mean Platelet Volume 11.6 FL (9.6-12.0); Monocytes # 0.4 10*3/uL (0.11-0.8); Monocytes % 12.2 % (1.7-12.7); Neutrophils # 2.6 10*3/uL (1.4-7.4); Neutrophils % 76.7 % (38.7-73.9); Red Blood Count 2.61 MC/CUMM (3.8-5.5); Red Cell Distribution Width 14.1 % (9.3-17.3); White Blood Count 3.4 T/CUMM (4-12)
[2018-11-05 04:34] LABS: Platelet Count 23 T/CUMM (130-400)
[2018-11-05 04:49] LABS: Calcium 7.2 MG/DL (8.5-10.1); Osmolality,Calculated 279.1 MOS/KG (273-304); Potassium 3.5 MMOL/L (3.5-5.1)
[2018-11-05 05:11] LABS: Platelet Estimate Decreased
[2018-11-05 05:12] LABS: Hypochromasia Slight
[2018-11-05] MEDS: CEFEPIME 1,000 MG in SYRINGE 1 EACH IV SCH ×2 (05:48→15:51)
[2018-11-05] MEDS: metroNIDAZOLE INJ 500 MG in PREMIX 1 EACH IV SCH (05:51)
[2018-11-05] MEDS: LEVOTHYROXINE 200 MCG TABLET PO SCH (05:52)
[2018-11-05] MEDS: FOLIC ACID 1 MG TABLET PO SCH (09:17)
[2018-11-05] MEDS: PANTOPRAZOLE 40 MG TABLET PO SCH ×2 (09:18→22:00)
[2018-11-05] MEDS: FLUoxetine 20 MG CAPSULE PO SCH (09:18)
[2018-11-05] MEDS: SPIRONOLACTONE 25 MG TABLET PO SCH (09:18)
[2018-11-05] MEDS: ALBUTEROL 2.5 MG/3 ML NEB RESP TX SCH ×2 (14:00→19:35)
[2018-11-05] MEDS: NYSTATIN CREAM 15 GM TUBE TOP SCH ×2 (14:19→22:00)
[2018-11-05] MEDS: MIDODRINE 2.5 MG TABLET PO SCH ×3 (14:19→22:00)
[2018-11-05] MEDS: ALBUMIN 25% 25 GM in PREMIX 1 EACH IV SCH (15:56)
[2018-11-05] MEDS: cefTRIAXone 1,000 MG in SYRINGE 1 EACH IV SCH (18:02)
[2018-11-05] MEDS: ONDANSETRON 4 MG/2 ML VIAL IV PRN (18:19)
[2018-11-05] MEDS: TAMSULOSIN 0.4 MG CAPSULE PO SCH (22:00)
[2018-11-06] MEDS: ALBUTEROL 2.5 MG/3 ML NEB RESP TX SCH ×4 (00:33→20:00)
[2018-11-06] MEDS: ALBUMIN 25% 25 GM in PREMIX 1 EACH IV SCH ×2 (04:50→17:46)
[2018-11-06 05:07] LABS: Alanine Aminotransferase < 9 U/L (16-61); Albumin 2.5 G/DL (3.4-5.0); Alkaline Phosphatase 76 U/L (45-117); Aspartate Amino Transferase 11 U/L (0-37); Blood Urea Nitrogen 4 MG/DL (7-18); Calcium 7.8 MG/DL (8.5-10.1); Glucose 105 MG/DL (74-106); Osmolality,Calculated 279.1 MOS/KG (273-304); Potassium 3.5 MMOL/L (3.5-5.1); Sodium 142 MMOL/L (136-145); Total Protein 4.3 G/DL (6.4-8.3)
[2018-11-06 05:35] LABS: Basophils % 0.6 % (0.0-0.8); Eosinophils # 0.1 10*3/uL (0.0-0.87); Eosinophils % 1.4 % (0.00-10.9); Hemoglobin 8.7 GM/DL (14.0-18.0); Immature Granulocytes % 0.6 %; Immature Granulocytes Absolute 0.02 #; Lymphocytes # 0.2 10*3/uL (1.4-4.0); Lymphocytes % 6.7 % (21.2-54.2); Mean Corpuscular HGB Conc 33.5 GM/DL (32-36); Mean Corpuscular Hemoglobin 35 PG (27-34); Mean Platelet Volume 12.6 FL (9.6-12.0); Monocytes # 0.4 10*3/uL (0.11-0.8); Neutrophils # 2.9 10*3/uL (1.4-7.4); Neutrophils % 80.7 % (38.7-73.9); Red Cell Distribution Width 14.1 % (9.3-17.3); White Blood Count 3.6 T/CUMM (4-12)
[2018-11-06 05:37] LABS: Platelet Count 19 T/CUMM (130-400)
[2018-11-06 05:40] LABS: Hypochromasia Slight; Macrocytosis Slight; Target Cells Slight
[2018-11-06 05:41] LABS: Platelet Estimate Decreased
[2018-11-06] MEDS: LEVOTHYROXINE 200 MCG TABLET PO SCH (06:38)
[2018-11-06] MEDS ORDERED: SODIUM CHLORIDE 0.9% 1,000 ML IV PRN (07:31)
[2018-11-06] MEDS: FUROSEMIDE 40 MG TABLET PO SCH (09:07)
[2018-11-06] MEDS: FLUoxetine 20 MG CAPSULE PO SCH (09:07)
[2018-11-06] MEDS: NYSTATIN CREAM 15 GM TUBE TOP SCH ×2 (09:07→20:29)
[2018-11-06] MEDS: FOLIC ACID 1 MG TABLET PO SCH (09:07)
[2018-11-06] MEDS: SPIRONOLACTONE 100 MG TABLET PO SCH (09:07)
[2018-11-06] MEDS: PANTOPRAZOLE 40 MG TABLET PO SCH ×2 (09:07→20:29)
[2018-11-06] MEDS: THIAMINE 100 MG TABLET PO SCH (09:13)
[2018-11-06] MEDS: MIDODRINE 2.5 MG TABLET PO SCH ×3 (09:13→20:29)
[2018-11-06] MEDS ORDERED: ALBUMIN 25% 25 GM in PREMIX 1 EACH IV SCH (17:30)
[2018-11-06] MEDS: cefTRIAXone 1,000 MG in SYRINGE 1 EACH IV SCH (17:35)
[2018-11-06] MEDS: TAMSULOSIN 0.4 MG CAPSULE PO SCH (20:29)
[2018-11-07] MEDS: ALBUTEROL 2.5 MG/3 ML NEB RESP TX SCH ×4 (01:00→20:09)
[2018-11-07] MEDS: MORPHINE 4 MG/1 ML VIAL IV PRN ×3 (03:56→20:19)
[2018-11-07 05:20] LABS: Basophils % 0.8 % (0.0-0.8); Eosinophils # 0.1 10*3/uL (0.0-0.87); Eosinophils % 2.8 % (0.00-10.9); Hemoglobin 7.4 GM/DL (14.0-18.0); Immature Granulocytes % 0.4 %; Immature Granulocytes Absolute 0.01 #; Lymphocytes # 0.2 10*3/uL (1.4-4.0); Lymphocytes % 6.9 % (21.2-54.2); Mean Corpuscular HGB Conc 33.6 GM/DL (32-36); Mean Corpuscular Hemoglobin 35 PG (27-34); Mean Corpuscular Volume 103.8 FL (87-102); Mean Platelet Volume 10.5 FL (9.6-12.0); Monocytes # 0.3 10*3/uL (0.11-0.8); Monocytes % 13.3 % (1.7-12.7); Neutrophils # 1.9 10*3/uL (1.4-7.4); Neutrophils % 75.8 % (38.7-73.9); Red Blood Count 2.12 MC/CUMM (3.8-5.5); Red Cell Distribution Width 14.2 % (9.3-17.3); White Blood Count 2.5 T/CUMM (4-12)
[2018-11-07 05:26] LABS: Calcium 8.1 MG/DL (8.5-10.1); Osmolality,Calculated 281.8 MOS/KG (273-304); Potassium 3.3 MMOL/L (3.5-5.1)
[2018-11-07 05:28] LABS: Platelet Count 27 T/CUMM (130-400)
[2018-11-07 05:42] LABS: Hypochromasia 1+; Ovalocytes Slight; Platelet Estimate Decreased
[2018-11-07 05:43] LABS: Macrocytosis Slight
[2018-11-07] MEDS: LEVOTHYROXINE 200 MCG TABLET PO SCH (06:11)
[2018-11-07] MEDS ORDERED: SODIUM CHLORIDE 0.9% 1,000 ML IV PRN (08:38)
[2018-11-07] MEDS: ONDANSETRON 4 MG/2 ML VIAL IV PRN (10:26)
[2018-11-07] MEDS: FLUoxetine 20 MG CAPSULE PO SCH (10:28)
[2018-11-07] MEDS: SPIRONOLACTONE 100 MG TABLET PO SCH (10:28)
[2018-11-07] MEDS: MIDODRINE 2.5 MG TABLET PO SCH ×3 (10:28→20:19)
[2018-11-07] MEDS: PANTOPRAZOLE 40 MG TABLET PO SCH ×2 (10:28→20:18)
[2018-11-07] MEDS: FUROSEMIDE 40 MG TABLET PO SCH (10:28)
[2018-11-07] MEDS: THIAMINE 100 MG TABLET PO SCH (10:28)
[2018-11-07] MEDS: FOLIC ACID 1 MG TABLET PO SCH (10:29)
[2018-11-07] MEDS: POTASSIUM CHLORIDE 8 MEQ CAPSULE PO SCH (13:07)
[2018-11-07] MEDS: NYSTATIN CREAM 15 GM TUBE TOP SCH ×2 (13:11→21:50)
[2018-11-07] MEDS: cefTRIAXone 1,000 MG in SYRINGE 1 EACH IV SCH (16:16)
[2018-11-07] MEDS: TAMSULOSIN 0.4 MG CAPSULE PO SCH (20:18)
[2018-11-08] MEDS: ALBUTEROL 2.5 MG/3 ML NEB RESP TX SCH ×3 (01:00→16:10)
[2018-11-08] MEDS: MORPHINE 4 MG/1 ML VIAL IV PRN (03:28)
[2018-11-08 05:27] LABS: Basophils % 0.4 % (0.0-0.8); Eosinophils # 0.1 10*3/uL (0.0-0.87); Eosinophils % 1.5 % (0.00-10.9); Hematocrit 30.7 VOL% (42.0-52.0); Hemoglobin 10.6 GM/DL (14.0-18.0); Immature Granulocytes % 0.4 %; Immature Granulocytes Absolute 0.02 #; Lymphocytes # 0.3 10*3/uL (1.4-4.0); Lymphocytes % 6.8 % (21.2-54.2); Mean Corpuscular HGB Conc 34.5 GM/DL (32-36); Mean Corpuscular Hemoglobin 33 PG (27-34); Mean Corpuscular Volume 96.8 FL (87-102); Mean Platelet Volume 12.5 FL (9.6-12.0); Monocytes # 0.6 10*3/uL (0.11-0.8); Monocytes % 12.3 % (1.7-12.7); Neutrophils # 3.6 10*3/uL (1.4-7.4); Neutrophils % 78.6 % (38.7-73.9); Red Blood Count 3.17 MC/CUMM (3.8-5.5); Red Cell Distribution Width 17.5 % (9.3-17.3); White Blood Count 4.6 T/CUMM (4-12)
[2018-11-08 05:34] LABS: Platelet Count 26 T/CUMM (130-400)
[2018-11-08] MEDS: LEVOTHYROXINE 200 MCG TABLET PO SCH (05:34)
[2018-11-08 05:49] LABS: Albumin 2.6 G/DL (3.4-5.0); Alkaline Phosphatase 70 U/L (45-117); Aspartate Amino Transferase 10 U/L (0-37); Bilirubin,Indirect 1.8 MG/DL (0.0-1.0); Blood Urea Nitrogen 3 MG/DL (7-18); Glucose 81 MG/DL (74-106); Osmolality,Calculated 278.1 MOS/KG (273-304); Potassium 3.2 MMOL/L (3.5-5.1); Sodium 142 MMOL/L (136-145); Total Protein 4.3 G/DL (6.4-8.3)
[2018-11-08 05:50] LABS: Hypochromasia 1+; Platelet Estimate Decreased
[2018-11-08 05:51] LABS: Alanine Aminotransferase < 9 U/L (16-61); Macrocytosis Slight
[2018-11-08] MEDS ORDERED: POTASSIUM CHLORIDE 20 MEQ TABLET PO ONE (08:19)
[2018-11-08] MEDS ORDERED: SPIRONOLACTONE 50 MG TABLET PO SCH (09:00)
[2018-11-08] MEDS: MIDODRINE 2.5 MG TABLET PO SCH ×2 (11:37→19:32)
[2018-11-08] MEDS: THIAMINE 100 MG TABLET PO SCH (11:38)
[2018-11-08] MEDS: FUROSEMIDE 40 MG TABLET PO SCH (11:38)
[2018-11-08] MEDS: PANTOPRAZOLE 40 MG TABLET PO SCH (11:38)
[2018-11-08] MEDS: FLUoxetine 20 MG CAPSULE PO SCH (11:38)
[2018-11-08] MEDS: FOLIC ACID 1 MG TABLET PO SCH (11:38)
[2018-11-08] MEDS: POTASSIUM CHLORIDE 8 MEQ CAPSULE PO SCH (11:39)
[2018-11-08] MEDS: MAGNESIUM SULF RIDER 2 GM in PREMIX 1 EACH IV ONE ×2 (11:39→19:33)
[2018-11-08] MEDS: NYSTATIN CREAM 15 GM TUBE TOP SCH (11:44)
[2018-11-08 15:57] VITALS: BP 105/63
[2018-11-08] MEDS ORDERED: HEPARIN LOCK FLUSH 500 UNIT/5 ML SYRINGE IV ONE (17:26)
[2018-11-08] MEDS: cefTRIAXone 1,000 MG in SYRINGE 1 EACH IV SCH (19:32)
== END 2018-11-08 17:53 | disposition home or self-care (01) | DRG 947 ==
LOC: N.ED 22:42 → N.EDINP 11-02 03:11 → SUATTDRO 11-02 03:11 → N.CC 11-02 04:00 → N.4E 11-06 15:52
PROVIDERS: ADMIT Internal Medicine; ATTEND Internal Medicine

== ENCOUNTER 2019-01-06 21:33 | Inpatient (IN) ==
[2019-01-06] MEDS ORDERED: KETOROLAC 30 MG/1 ML VIAL IV STA (23:00)
[2019-01-06] MEDS ORDERED: ONDANSETRON 4 MG/2 ML VIAL IV STA (23:00)
[2019-01-06] MEDS ORDERED: HYDROmorphone 2 MG/1 ML VIAL IV STA (23:00)
[2019-01-06] MEDS ORDERED: SODIUM CHLORIDE 0.9% 1,000 ML IV STA (23:06)
[2019-01-06 23:50] LABS: Basophils % 0.6 % (0.0-0.8); Eosinophils # 0.1 10*3/uL (0.0-0.87); Eosinophils % 1.5 % (0.00-10.9); Hematocrit 28.1 VOL% (42.0-52.0); Hemoglobin 9.3 GM/DL (14.0-18.0); Immature Granulocytes % 0.4 %; Immature Granulocytes Absolute 0.02 #; Lymphocytes # 0.4 10*3/uL (1.4-4.0); Lymphocytes % 7.5 % (21.2-54.2); Mean Corpuscular HGB Conc 33.1 GM/DL (32-36); Mean Corpuscular Volume 100.4 FL (87-102); Mean Platelet Volume 11.5 FL (9.6-12.0); Monocytes % 18.8 % (1.7-12.7); Neutrophils % 71.2 % (38.7-73.9); Platelet Count 41 T/CUMM (130-400); White Blood Count 4.8 T/CUMM (4-12)
[2019-01-07 00:11] LABS: Alanine Aminotransferase 10 U/L (16-61); Alkaline Phosphatase 86 U/L (45-117); Aspartate Amino Transferase 21 U/L (0-37); Blood Urea Nitrogen 22 MG/DL (7-18); Glucose 85 MG/DL (74-106); Osmolality,Calculated 259.9 MOS/KG (273-304); Total Protein 5.1 G/DL (6.4-8.3)
[2019-01-07] MEDS ORDERED: MEROPENEM 1,000 MG in SODIUM CHLORIDE 0.9% 100 ML IV STA (00:48)
[2019-01-07] MEDS ORDERED: HYDROmorphone 2 MG/1 ML VIAL IV STA (00:56)
[2019-01-07 01:02] LABS: Lymphocytes 2 % (20-55); Segmented Neutrophils 88 % (50-85)
[2019-01-07 01:03] LABS: Platelet Estimate Decreased; Total Cells Counted 100
[2019-01-07 01:18] LABS: Apearance,Urine CLEAR (Clear); Bilirubin,Urine Negative (Negative); Blood, Urine Small mg/dL (Negative); Glucose,Urine (UA) 50 mg/dL (Negative); Ketones,Urine 5 mg/dL (Negative); Nitrite,Urine Negative (Negative); Protein,Urine Negative; RBC,Urine 1 /HPF (0-4); Squamous Epithelial Cell,Urine Occasional /HPF (0-10); Urine Color Yellow (Yellow); Urine Specific Gravity 1.008 (1.001-1.035); Urine Urobilinogen < 2.0 EU/DL (0.2-1.0); WBC,Urine <1 /HPF (0-6)
[2019-01-07] MEDS ORDERED: ONDANSETRON 4 MG/2 ML VIAL IV PRN (02:48)
[2019-01-07] MEDS ORDERED: NICOTINE 21 MG/24 HR PATCH TRANSDERM PRN (02:48)
[2019-01-07] MEDS ORDERED: PROMETHAZINE 25 MG/1 ML VIAL IM PRN (02:48)
[2019-01-07] MEDS ORDERED: diphenhydrAMINE CAP 25 MG CAPSULE PO PRN (02:48)
[2019-01-07] MEDS ORDERED: LACTULOSE 20 GM/30 ML UDCUP PO PRN (02:48)
[2019-01-07] MEDS ORDERED: oxyCODONE IR 5 MG TABLET PO PRN (03:41)
[2019-01-07] MEDS: LEVOTHYROXINE 200 MCG TABLET PO SCH (06:08)
[2019-01-07] MEDS: ALBUTEROL 2.5 MG/3 ML NEB RESP TX SCH ×3 (06:58→19:48)
[2019-01-07] MEDS ORDERED: FUROSEMIDE 40 MG TABLET PO SCH (09:00)
[2019-01-07] MEDS ORDERED: THIAMINE 100 MG TABLET PO SCH (09:00)
[2019-01-07] MEDS: MORPHINE 4 MG/1 ML VIAL IV PRN ×3 (09:34→21:38)
[2019-01-07] MEDS: FAMOTIDINE 20 MG TABLET PO SCH (09:37)
[2019-01-07] MEDS: FLUoxetine 20 MG CAPSULE PO SCH (09:38)
[2019-01-07] MEDS: LACTOBACILLUS RHAMNOSUS GG CAPSULE PO SCH (09:38)
[2019-01-07] MEDS: FOLIC ACID 1 MG TABLET PO SCH (09:38)
[2019-01-07] MEDS: SPIRONOLACTONE 50 MG TABLET PO SCH (09:38)
[2019-01-07] MEDS: MIDODRINE 5 MG TABLET PO SCH ×3 (09:38→21:38)
[2019-01-07] MEDS: PANTOPRAZOLE 40 MG TABLET PO SCH (09:38)
[2019-01-07] MEDS: THIAMINE 100 MG TABLET PO SCH (09:38)
[2019-01-07] MEDS: SODIUM CHLORIDE 0.9% 1,000 ML IV SCH (10:55)
[2019-01-07] MEDS: MEROPENEM 1,000 MG in SODIUM CHLORIDE 0.9% 100 ML IV SCH (14:07)
[2019-01-08] MEDS: ALBUTEROL 2.5 MG/3 ML NEB RESP TX SCH ×4 (00:32→19:47)
[2019-01-08] MEDS: MORPHINE 4 MG/1 ML VIAL IV PRN ×4 (02:49→17:54)
[2019-01-08] MEDS: MEROPENEM 1,000 MG in SODIUM CHLORIDE 0.9% 100 ML IV SCH ×2 (02:56→13:15)
[2019-01-08 04:49] LABS: Basophils % 0.7 % (0.0-0.8); Eosinophils # 0.1 10*3/uL (0.0-0.87); Eosinophils % 1.7 % (0.00-10.9); Hematocrit 25.9 VOL% (42.0-52.0); Hemoglobin 8.5 GM/DL (14.0-18.0); Immature Granulocytes % 0.5 %; Immature Granulocytes Absolute 0.02 #; Lymphocytes # 0.3 10*3/uL (1.4-4.0); Lymphocytes % 7.2 % (21.2-54.2); Mean Corpuscular HGB Conc 32.8 GM/DL (32-36); Mean Corpuscular Volume 100.8 FL (87-102); Mean Platelet Volume 12.5 FL (9.6-12.0); Monocytes % 19.7 % (1.7-12.7); Neutrophils % 70.2 % (38.7-73.9); Platelet Count 40 T/CUMM (130-400); Red Blood Count 2.57 MC/CUMM (3.8-5.5)
[2019-01-08 05:15] LABS: Alanine Aminotransferase < 9 U/L (16-61); Albumin 1.7 G/DL (3.4-5.0); Alkaline Phosphatase 81 U/L (45-117); Aspartate Amino Transferase 18 U/L (0-37); Blood Urea Nitrogen 22 MG/DL (7-18); Calcium 7.5 MG/DL (8.5-10.1); Glucose 87 MG/DL (74-106); Osmolality,Calculated 263.7 MOS/KG (273-304); Total Protein 4.4 G/DL (6.4-8.3)
[2019-01-08] MEDS: LEVOTHYROXINE 200 MCG TABLET PO SCH (06:20)
[2019-01-08] MEDS: SODIUM CHLORIDE 0.9% 1,000 ML IV SCH ×3 (06:44→17:57)
[2019-01-08 07:12] LABS: Eosinophils 1 % (0-10); Hypochromasia Slight; Lymphocytes 8 % (20-55); Platelet Estimate Decreased; Segmented Neutrophils 75 % (50-85); Total Cells Counted 100
[2019-01-08] MEDS ORDERED: MAGNESIUM HYDROXIDE SUSP 30 ML UDCUP PO PRN (08:21)
[2019-01-08] MEDS ORDERED: MAGNESIUM HYDROXIDE SUSP 30 ML UDCUP PO ONE (08:21)
[2019-01-08] MEDS: LACTOBACILLUS RHAMNOSUS GG CAPSULE PO SCH (08:36)
[2019-01-08] MEDS: FOLIC ACID 1 MG TABLET PO SCH (08:36)
[2019-01-08] MEDS: THIAMINE 100 MG TABLET PO SCH (08:36)
[2019-01-08] MEDS: SPIRONOLACTONE 50 MG TABLET PO SCH (08:36)
[2019-01-08] MEDS: PANTOPRAZOLE 40 MG TABLET PO SCH (08:36)
[2019-01-08] MEDS: MIDODRINE 5 MG TABLET PO SCH ×3 (08:36→21:16)
[2019-01-08] MEDS: FAMOTIDINE 20 MG TABLET PO SCH (08:36)
[2019-01-08] MEDS: FLUoxetine 20 MG CAPSULE PO SCH (08:36)
[2019-01-09] MEDS: ALBUTEROL 2.5 MG/3 ML NEB RESP TX SCH ×4 (00:09→19:55)
[2019-01-09] MEDS: MEROPENEM 1,000 MG in SODIUM CHLORIDE 0.9% 100 ML IV SCH ×2 (00:12→12:41)
[2019-01-09] MEDS: MORPHINE 4 MG/1 ML VIAL IV PRN ×6 (00:40→23:19)
[2019-01-09 05:09] LABS: Basophils % 0.8 % (0.0-0.8); Eosinophils # 0.1 10*3/uL (0.0-0.87); Eosinophils % 3.3 % (0.00-10.9); Hematocrit 27.4 VOL% (42.0-52.0); Hemoglobin 9.2 GM/DL (14.0-18.0); Immature Granulocytes % 0.5 %; Immature Granulocytes Absolute 0.02 #; Lymphocytes # 0.4 10*3/uL (1.4-4.0); Lymphocytes % 8.8 % (21.2-54.2); Mean Corpuscular HGB Conc 33.6 GM/DL (32-36); Mean Corpuscular Volume 100.4 FL (87-102); Mean Platelet Volume 12.4 FL (9.6-12.0); Monocytes % 18.3 % (1.7-12.7); Neutrophils % 68.3 % (38.7-73.9); Platelet Count 46 T/CUMM (130-400); Red Blood Count 2.73 MC/CUMM (3.8-5.5); Red Cell Distribution Width 12.9 % (9.3-17.3)
[2019-01-09 05:27] LABS: Calcium 7.9 MG/DL (8.5-10.1); Osmolality,Calculated 269.2 MOS/KG (273-304)
[2019-01-09 05:48] LABS: Band Neutrophils 1 % (0-10); Eosinophils 2 % (0-10); Lymphocytes 9 % (20-55); Segmented Neutrophils 77 % (50-85); Total Cells Counted 100
[2019-01-09 05:49] LABS: Anisocytosis 1+
[2019-01-09 05:50] LABS: Platelet Estimate Decreased
[2019-01-09] MEDS: LEVOTHYROXINE 200 MCG TABLET PO SCH (07:07)
[2019-01-09] MEDS: MIDODRINE 5 MG TABLET PO SCH ×3 (08:50→20:06)
[2019-01-09] MEDS: SPIRONOLACTONE 50 MG TABLET PO SCH (08:50)
[2019-01-09] MEDS: FAMOTIDINE 20 MG TABLET PO SCH (08:50)
[2019-01-09] MEDS: LACTOBACILLUS RHAMNOSUS GG CAPSULE PO SCH (08:50)
[2019-01-09] MEDS: FOLIC ACID 1 MG TABLET PO SCH (08:50)
[2019-01-09] MEDS: FLUoxetine 20 MG CAPSULE PO SCH (08:51)
[2019-01-09] MEDS: THIAMINE 100 MG TABLET PO SCH (08:51)
[2019-01-09] MEDS: PANTOPRAZOLE 40 MG TABLET PO SCH (08:51)
[2019-01-09] MEDS ORDERED: fentaNYL 25 MCG/HR PATCH TRANSDERM SCH (09:00)
[2019-01-09] MEDS: SODIUM CHLORIDE 0.9% 1,000 ML IV SCH (11:31)
[2019-01-10] MEDS: MEROPENEM 1,000 MG in SODIUM CHLORIDE 0.9% 100 ML IV SCH (00:02)
[2019-01-10] MEDS: ALBUTEROL 2.5 MG/3 ML NEB RESP TX SCH ×2 (00:27→07:18)
[2019-01-10] MEDS: LEVOTHYROXINE 200 MCG TABLET PO SCH (05:04)
[2019-01-10] MEDS: MORPHINE 4 MG/1 ML VIAL IV PRN ×2 (05:04→12:02)
[2019-01-10] MEDS: THIAMINE 100 MG TABLET PO SCH (08:53)
[2019-01-10] MEDS: MIDODRINE 5 MG TABLET PO SCH (08:53)
[2019-01-10] MEDS: PANTOPRAZOLE 40 MG TABLET PO SCH (08:54)
[2019-01-10] MEDS: SPIRONOLACTONE 50 MG TABLET PO SCH (08:54)
[2019-01-10] MEDS: FAMOTIDINE 20 MG TABLET PO SCH (08:54)
[2019-01-10] MEDS: FLUoxetine 20 MG CAPSULE PO SCH (08:54)
[2019-01-10] MEDS: FOLIC ACID 1 MG TABLET PO SCH (08:54)
[2019-01-10] MEDS: LACTOBACILLUS RHAMNOSUS GG CAPSULE PO SCH (08:54)
[2019-01-10] MEDS ORDERED: POLYETHYLENE GLYCOL POWDER 17 GM PACK PO SCH (09:00)
[2019-01-10 12:19] VITALS: BP 99/57
== END 2019-01-10 12:10 | disposition home health service (06) | DRG 374 ==
LOC: N.ED 21:33 → N.EDINP 01-07 02:49 → SUATTDRO 01-07 02:49 → SUPCPDRO 01-07 02:49 → N.4E 01-07 03:16
PROVIDERS: ADMIT Internal Medicine; ATTEND Hospitalist

== ENCOUNTER 2019-01-13 22:56 | Observation (INO) ==
[2019-01-14] MEDS: LACTATED RINGERS 1,000 ML IV SCH ×2 (00:30→15:05)
[2019-01-14 01:00] LABS: Albumin 2.1 G/DL (3.4-5.0); Bilirubin,Total 1.3 MG/DL (0.2-1.0); Calcium 8.3 MG/DL (8.5-10.1); Osmolality,Calculated 256.8 MOS/KG (273-304); Total Protein 5.4 G/DL (6.4-8.3)
[2019-01-14 01:06] LABS: Basophils % 0.5 % (0.0-0.8); Eosinophils # 0.1 10*3/uL (0.0-0.87); Eosinophils % 1.1 % (0.00-10.9); Hematocrit 27.4 VOL% (42.0-52.0); Hemoglobin 9.3 GM/DL (14.0-18.0); Immature Granulocytes % 0.9 %; Immature Granulocytes Absolute 0.05 #; Lymphocytes # 0.5 10*3/uL (1.4-4.0); Lymphocytes % 8.2 % (21.2-54.2); Mean Corpuscular HGB Conc 33.9 GM/DL (32-36); Mean Corpuscular Volume 100.4 FL (87-102); Mean Platelet Volume 10.9 FL (9.6-12.0); Monocytes % 16.2 % (1.7-12.7); Neutrophils % 73.1 % (38.7-73.9); Platelet Count 72 T/CUMM (130-400); Red Blood Count 2.73 MC/CUMM (3.8-5.5); Red Cell Distribution Width 13.2 % (9.3-17.3); White Blood Count 5.5 T/CUMM (4-12)
[2019-01-14] MEDS ORDERED: HYDROmorphone 2 MG/1 ML VIAL IV STA (01:58)
[2019-01-14] MEDS ORDERED: HYDROmorphone 2 MG/1 ML VIAL ONE (01:58)
[2019-01-14 02:07] LABS: Band Neutrophils 5 % (0-10); Lymphocytes 10 % (20-55); Platelet Estimate Decreased; Segmented Neutrophils 72 % (50-85); Total Cells Counted 100
[2019-01-14 02:08] LABS: Anisocytosis 2+; Macrocytosis Slight; Microcytosis 2+
[2019-01-14] MEDS ORDERED: ONDANSETRON 4 MG/2 ML VIAL IV PRN (03:23)
[2019-01-14] MEDS ORDERED: PROMETHAZINE 25 MG/1 ML VIAL IM PRN (03:23)
[2019-01-14] MEDS ORDERED: oxyCODONE IR 5 MG TABLET PO PRN (07:37)
[2019-01-14] MEDS ORDERED: MAGNESIUM HYDROXIDE SUSP 30 ML UDCUP PO PRN (07:37)
[2019-01-14] MEDS: HYDROmorphone 2 MG/1 ML VIAL IV PRN ×3 (07:53→19:20)
[2019-01-14] MEDS: POLYETHYLENE GLYCOL POWDER 17 GM PACK PO SCH (08:39)
[2019-01-14] MEDS: LEVOTHYROXINE 200 MCG TABLET PO SCH (08:40)
[2019-01-14] MEDS: THIAMINE 100 MG TABLET PO SCH (08:40)
[2019-01-14] MEDS: FAMOTIDINE 20 MG TABLET PO SCH (08:40)
[2019-01-14] MEDS: SPIRONOLACTONE 50 MG TABLET PO SCH (08:41)
[2019-01-14] MEDS: PANTOPRAZOLE 40 MG TABLET PO SCH ×2 (08:41→20:40)
[2019-01-14] MEDS: LACTOBACILLUS RHAMNOSUS GG CAPSULE PO SCH (08:41)
[2019-01-14] MEDS: MIDODRINE 2.5 MG TABLET PO SCH ×3 (08:41→20:39)
[2019-01-14] MEDS: FUROSEMIDE 40 MG TABLET PO SCH (08:41)
[2019-01-14] MEDS: CLOTRIMAZOLE/BETAMETHASONE CREAM 15 GM TUBE TOP SCH ×2 (08:44→20:41)
[2019-01-14] MEDS ORDERED: fentaNYL 25 MCG/HR PATCH TRANSDERM SCH (09:00)
[2019-01-14] MEDS ORDERED: fentaNYL 50 MCG/HR PATCH TRANSDERM SCH (09:00)
[2019-01-14] MEDS: ALBUTEROL 2.5 MG/3 ML NEB RESP TX SCH ×2 (13:15→19:18)
[2019-01-14] MEDS: SODIUM CHLORIDE 0.9% 1,000 ML IV SCH (15:32)
[2019-01-15] MEDS: ALBUTEROL 2.5 MG/3 ML NEB RESP TX SCH ×4 (00:06→19:41)
[2019-01-15] MEDS: HYDROmorphone 2 MG/1 ML VIAL IV PRN ×4 (03:41→20:46)
[2019-01-15] MEDS: LACTATED RINGERS 1,000 ML IV SCH ×2 (05:14→17:27)
[2019-01-15] MEDS: SODIUM CHLORIDE 0.9% 1,000 ML IV SCH ×2 (05:15→13:43)
[2019-01-15 06:27] LABS: Basophils % 0.6 % (0.0-0.8); Eosinophils # 0.1 10*3/uL (0.0-0.87); Eosinophils % 1.9 % (0.00-10.9); Hematocrit 25.6 VOL% (42.0-52.0); Hemoglobin 8.5 GM/DL (14.0-18.0); Immature Granulocytes % 0.3 %; Immature Granulocytes Absolute 0.02 #; Lymphocytes # 0.4 10*3/uL (1.4-4.0); Lymphocytes % 5.1 % (21.2-54.2); Mean Corpuscular HGB Conc 33.2 GM/DL (32-36); Mean Corpuscular Volume 101.2 FL (87-102); Mean Platelet Volume 11.6 FL (9.6-12.0); Monocytes % 11.3 % (1.7-12.7); Neutrophils % 80.8 % (38.7-73.9); Red Blood Count 2.53 MC/CUMM (3.8-5.5); Red Cell Distribution Width 13.5 % (9.3-17.3)
[2019-01-15 06:30] LABS: Platelet Count 60 T/CUMM (130-400)
[2019-01-15 06:49] LABS: Hypochromasia 1+; Platelet Estimate Decreased
[2019-01-15 06:50] LABS: Microcytosis Slight
[2019-01-15 06:52] LABS: Albumin 1.8 G/DL (3.4-5.0); Bilirubin,Total 1.1 MG/DL (0.2-1.0); Calcium 8.1 MG/DL (8.5-10.1); Osmolality,Calculated 265.2 MOS/KG (273-304); Total Protein 4.6 G/DL (6.4-8.3)
[2019-01-15] MEDS: POLYETHYLENE GLYCOL POWDER 17 GM PACK PO SCH (08:53)
[2019-01-15] MEDS: MIDODRINE 2.5 MG TABLET PO SCH ×3 (08:53→20:31)
[2019-01-15] MEDS: FAMOTIDINE 20 MG TABLET PO SCH (08:53)
[2019-01-15] MEDS: FUROSEMIDE 40 MG TABLET PO SCH (08:53)
[2019-01-15] MEDS: SPIRONOLACTONE 50 MG TABLET PO SCH (08:53)
[2019-01-15] MEDS: THIAMINE 100 MG TABLET PO SCH (08:53)
[2019-01-15] MEDS: LEVOTHYROXINE 200 MCG TABLET PO SCH (08:53)
[2019-01-15] MEDS: LACTOBACILLUS RHAMNOSUS GG CAPSULE PO SCH (08:53)
[2019-01-15] MEDS: PANTOPRAZOLE 40 MG TABLET PO SCH ×2 (08:54→20:32)
[2019-01-15] MEDS: CLOTRIMAZOLE/BETAMETHASONE CREAM 15 GM TUBE TOP SCH ×2 (08:54→20:33)
[2019-01-15 13:42] LABS: INR 1.4; PT Patient Result 14.9 SECS
[2019-01-16] MEDS: ALBUTEROL 2.5 MG/3 ML NEB RESP TX SCH ×3 (00:53→13:40)
[2019-01-16] MEDS: HYDROmorphone 2 MG/1 ML VIAL IV PRN ×2 (03:40→15:45)
[2019-01-16] MEDS: POLYETHYLENE GLYCOL POWDER 17 GM PACK PO SCH (08:45)
[2019-01-16] MEDS: CLOTRIMAZOLE/BETAMETHASONE CREAM 15 GM TUBE TOP SCH (08:46)
[2019-01-16] MEDS: FUROSEMIDE 40 MG TABLET PO SCH (08:46)
[2019-01-16] MEDS: SPIRONOLACTONE 50 MG TABLET PO SCH (08:46)
[2019-01-16] MEDS: PANTOPRAZOLE 40 MG TABLET PO SCH (08:46)
[2019-01-16] MEDS: LACTOBACILLUS RHAMNOSUS GG CAPSULE PO SCH (08:46)
[2019-01-16] MEDS: LEVOTHYROXINE 200 MCG TABLET PO SCH (08:46)
[2019-01-16] MEDS: MIDODRINE 2.5 MG TABLET PO SCH ×2 (08:46→15:45)
[2019-01-16] MEDS: THIAMINE 100 MG TABLET PO SCH (08:46)
[2019-01-16] MEDS: FAMOTIDINE 20 MG TABLET PO SCH (08:47)
[2019-01-16] MEDS: SODIUM CHLORIDE 0.9% 1,000 ML IV SCH (08:53)
[2019-01-16] MEDS: LACTATED RINGERS 1,000 ML IV SCH (08:53)
[2019-01-16] MEDS ORDERED: fentaNYL 100 MCG/2 ML VIAL IV ONE (12:00)
[2019-01-16] MEDS ORDERED: MIDAZOLAM 2 MG/2 ML VIAL IV ONE (12:00)
[2019-01-16] MEDS ORDERED: DIAZEPAM 5 MG TABLET PO ONE (12:00)
[2019-01-16] MEDS ORDERED: MIDAZOLAM 2 MG/2 ML VIAL ONE (14:28)
[2019-01-16] MEDS ORDERED: fentaNYL 100 MCG/2 ML VIAL ONE (14:28)
[2019-01-16 15:50] VITALS: BP 85/59
[2019-01-16 17:13] LABS: Neutrophils,Peritoneal Fluid 5 %
[2019-01-16 17:14] LABS: RBC,Peritoneal Fluid 18 T/CUMM
== END 2019-01-16 17:02 | disposition home or self-care (01) ==
LOC: N.ED 22:56 → N.EDINP 01-14 02:59 → SUATTDRO 01-14 02:59 → INTOOBSV 01-14 02:59 → N.4E 01-14 03:19
PROVIDERS: ADMIT Internal Medicine; ATTEND Internal Medicine